=== PATIENT | male | born 1990 | race African-American/Black ===

== ENCOUNTER 2019-01-19 17:48 | Emergency (ER) | payer OTHER ==
[~2019-01-19] VITALS: Ht 175.3 cm; Wt 86.2 kg
[2019-01-19] MEDS ORDERED: NAPROSYN500 MG PO (18:50)
[2019-01-19] MEDS ORDERED: TESSALON PERLE100 MG PO (18:50)
[2019-01-19 18:59] LABS: ABSOLUTE NEUTROPHILS 5.7 thou/uL (1.4-8.2); BASOPHILS 0.3 % (0.0-2.0); EOSINOPHILS 4.5 % (0.0-3.0); HEMATOCRIT 42.4 % (42.0-52.0); HEMOGLOBIN 14.4 gm/dL (14.0-18.0); LYMPHOCYTES 22.7 % (24.0-44.0); MCH 29.9 pg (26.0-34.0); MCV 87.9 fL (80.0-100.0); MONOCYTES 5.7 % (1.0-8.0); PLATELET COUNT 208 thou/uL (150-400); POLYS 66.8 % (36.0-66.0); RBC 4.83 mil/uL (4.50-6.00); RDW 12.2 % (10.5-14.5); WBC 8.5 thou/uL (4.0-11.0)
[2019-01-19 19:07] LABS: CALCIUM 9.5 mg/dL (8.5-10.1); CREATININE 1.2 mg/dL (0.7-1.3); POTASSIUM 3.8 mmol/L (3.5-5.1)
[2019-01-19 19:21] LABS: ALBUMIN 4.2 g/dL (3.4-5.0); TOTAL BILIRUBIN 0.3 mg/dL (<0.1-1.0); TOTAL PROTEIN 8.9 g/dL (6.4-8.2)
[2019-01-19 20:14] LABS: URINE BILIRUBIN NEGATIVE (Negative); URINE BLOOD NEGATIVE (Negative); URINE CLARITY CLEAR; URINE COLOR YELLOW; URINE GLUCOSE-RANDOM* NEGATIVE (Negative); URINE KETONES NEGATIVE (Negative); URINE LEUKOCYTES-REFLEX NEGATIVE (Negative); URINE NITRITE-REFLEX NEGATIVE (Negative); URINE PROTEIN (DIPSTICK) NEGATIVE (Negative); URINE UROBILINOGEN 0.2 E.U./dl (0.2-1.0)
[2019-01-19 20:58] VITALS: BP 131/76
--- NOTE | 2019-01-20 16:04 | EKG ---
[address] [address] [place] [address] ELECTROCARDIOGRAM REPORT Name: MIR REYNOLDS Room #: [facility]P [id number] ������������������ Admission: 01/19/19 ������������������ Attend Phys: Discharge: 01/19/19 ������������������ Date of : 89 Report #: [id number] ����������������������������������������������������������������� [id number] THIS REPORT FOR: //name// [facility] ED Test Date: 2019-01-19 Test Time: 18:51:45 Pat Name: MIR REYNOLDS Department: Room: Gender: Lpn: LARRY : 1990 Requested By: Zion Payton Order Number: [id number] MD: Evan Montano Measurements Intervals [place] Rate: 63 P: 22 WA: 234 QRS: 61 QRSD: 90 T: 30 QT: 397 QTc: 407 Interpretive Statements Sinus rhythm Prolonged [place] interval Baseline wander in lead(s) V1 No previous ECG available for comparison Electronically Signed On 01-20-2019 16:03:53 CDT by Evan Montano [email or web address] ��������������������������������������������� <ELECTRONICALLY SIGNED> ���������������������������������������� By: Evan Montano MD, [facility] ��������������������������������������������� 01/20/19 1603 1851 1851 Evan Montano MD, FACC /EPI
== END 2019-01-19 20:59 | disposition home or self-care (01) ==
LOC: ER 17:48
PROVIDERS: Emergency Medicine
DX: B34.9 Viral infection, unspecified (principal)

== ENCOUNTER 2019-07-06 17:43 | Emergency (ER) | payer OTHER ==
[~2019-07-06] VITALS: Ht 175.3 cm; Wt 84.4 kg
[~2019-07-06 17:43] MED LIST: NAPROSYN500 MG PO; TESSALON PERLE100 MG PO
[2019-07-06] MEDS ORDERED: NAPROSYN500 MG PO (19:20)
[2019-07-06 19:21] VITALS: BP 120/57
== END 2019-07-06 19:30 | disposition home or self-care (01) ==
LOC: ER 17:43
DX: S76.112A Strain of left quadriceps muscle, fascia and tendon, initial encounter (principal); X58.XXXA Exposure to other specified factors, initial encounter; Y93.67 Activity, basketball; Y92.89 Other specified places as the place of occurrence of the external cause; Y99.8 Other external cause status

== ENCOUNTER 2020-01-09 19:02 | Emergency (ER) | payer OTHER ==
[~2020-01-09] VITALS: Ht 175.3 cm; Wt 84.8 kg
[2020-01-09] MEDS ORDERED: NORFLEX100 MG PO (20:30)
[2020-01-09] MEDS ORDERED: NAPROSYN500 MG PO (20:30)
[2020-01-09 20:45] VITALS: BP 128/71
== END 2020-01-09 20:45 | disposition still patient (30) ==
LOC: ER 19:02
DX: M54.5 Low back pain (principal); V49.88XA Car occupant (driver) (passenger) injured in other specified transport accidents, initial encounter; Y93.89 Activity, other specified; Y92.413 State road as the place of occurrence of the external cause; Y99.9 Unspecified external cause status